=== PATIENT | male | born 1965 | race Caucasian/White ===

== ENCOUNTER 2022-02-10 09:02 | Emergency (ER) | payer MEDICARE ==
[2022-02-10 09:13] VITALS: BP 148/65; PULSE 75; RESP 18; TEMP 98.6
[2022-02-10] MEDS ORDERED: PROPARACAINE 0.5% OPHTH DROPS 15 ML BTL RIGHT EYE STA (09:28)
[2022-02-10] MEDS ORDERED: FLUORESCEIN STRIPS 1 MG STRIP RIGHT EYE ONE (09:28)
--- NOTE | 2022-02-10 09:32 | ED ---
Eye Problem HPI - General Chief complaint: Eye Problems Stated complaint: R. Eye Problems Time Seen by Provider: 02/10/22 09:14 Source: patient, RN notes reviewed Mode of arrival: ambulatory Limitations: no limitations - History of Present Illness Initial comments: Patient is a 56 year old male presenting to the ER with a chief complaint of right eye pain. Patient reports amblyopia of his right eye since childhood. Patient states he was treated for a sinus infection about two weeks ago with steroids and antibiotics. The pain has been appearing ever since. He describes it as a brain freeze deep in his right eye. The pain would only present at nighttime but now has progressed to daytime as well. He denies worsening of pain with change of positions. Patient also endorses associated headaches and his sclera turning bright red which resolves. He has tried taking Advil and a warm rag to relieve the symptoms with only slight relief. Denies any visual changes. - Related Data Previous Rx's Medication Instructions Recorded carBAMazepine [Carbatrol] See Rx Instructions .ROUTE 02/10/22 .COMPLEX #90 cap Allergies Allergy/AdvReac Type Severity Reaction Status Date / Time No Known Allergies Allergy Verified 02/10/22 09:13 Review of Systems ROS Statement: Those systems with pertinent positive or pertinent negative responses have been documented in the HPI. ROS Other: All systems not noted in ROS Statement are negative. Past Medical History Past Medical History: No Reported History History of Any Multi-Drug Resistant Organisms: None Reported Past Surgical History: Appendectomy, Cholecystectomy, Hernia Repair Smoking Status: Vaper Past Alcohol Use History: Occasional Past Drug Use History: None Reported General Exam Limitations: no limitations General appearance: alert, in no apparent distress Head exam: Present: atraumatic, normocephalic, normal inspection Eye exam: Present: normal appearance, PERRL, EOMI Pupils: Present: normal accommodation ENT exam: Present: normal exam, mucous membranes moist Neck exam: Present: normal inspection. Absent: tenderness, meningismus, lymphadenopathy Respiratory exam: Present: normal lung sounds bilaterally. Absent: respiratory distress, wheezes, rales, rhonchi, stridor Cardiovascular Exam: Present: regular rate, normal rhythm, normal heart sounds. Absent: systolic murmur, diastolic murmur, rubs, gallop, clicks GI/Abdominal exam: Present: soft, normal bowel sounds. Absent: distended, tenderness, guarding, rebound, rigid Neurological exam: Present: alert, oriented X3, CN II-XII intact Psychiatric exam: Present: normal affect, normal mood Skin exam: Present: warm, dry, intact, normal color. Absent: rash Course Vital Signs 02/10/22 09:10 Temperature 98.6 F Pulse Rate 75 Respiratory 18 Rate Blood Pressure 148/65 O2 Sat by Pulse 97 Oximetry Medical Decision Making - Medical Decision Making 56-year-old male presents from for intermittent right facial right ocular pain. Patient for continued including labs CT, gallop or pressure to my exam with no acute findings. Patient is asymptomatic at this time. He had concerns is related to trigeminal neuralgia. Patient has no evidence of herpes zoster. Patient has no visual changes and felt likely not to be checked cell arteritis. Patient will follow-up neurology, PCP we discharged on Tegretol. - Lab Data Result diagrams: 02/10/22 09:37 02/10/22 09:37 Lab Results 02/10/22 02/10/22 Range/Units 09:37 09:37 WBC 8.0 (3.8-10.6) k/uL RBC 5.71 (4.30-5.90) m/uL Hgb 16.5 (13.0-17.5) gm/dL Hct 50.1 (39.0-53.0) % MCV 87.7 (80.0-100.0) fL MCH 28.8 (25.0-35.0) pg MCHC 32.9 (31.0-37.0) g/dL RDW 12.5 (11.5-15.5) % Plt Count 216 (150-450) k/uL MPV 7.3 Neutrophils % 58 % Lymphocytes % 32 % Monocytes % 5 % Eosinophils % 3 % Basophils % 0 % Neutrophils # 4.6 (1.3-7.7) k/uL Lymphocytes # 2.6 (1.0-4.8) k/uL Monocytes # 0.4 (0-1.0) k/uL Eosinophils # 0.3 (0-0.7) k/uL Basophils # 0.0 (0-0.2) k/uL Sodium 139 (137-145) mmol/L Potassium 4.1 (3.5-5.1) mmol/L Chloride 110 H (98-107) mmol/L Carbon Dioxide 21 L (22-30) mmol/L Anion Gap 8 mmol/L BUN 10 (9-20) mg/dL Creatinine 0.96 (0.66-1.25) mg/dL Est GFR (CKD-EPI)AfAm >90 (>60 ml/min/1.73 sqM) Est GFR (CKD-EPI)NonAf 87 (>60 ml/min/1.73 sqM) Glucose 106 H (74-99) mg/dL Calcium 8.9 (8.4-10.2) mg/dL Total Bilirubin 0.6 (0.2-1.3) mg/dL AST 23 (17-59) U/L ALT 28 (4-49) U/L Alkaline Phosphatase 94 (38-126) U/L Total Protein 7.4 (6.3-8.2) g/dL Albumin 4.4 (3.5-5.0) g/dL Disposition Clinical Impression: Trigeminal neuralgia of right side of face Disposition: HOME SELF-CARE Condition: Stable Instructions (If sedation given, give patient instructions): Trigeminal Neuralgia (ED) Additional Instructions: Please return to the Emergency Department if symptoms worsen or any other concerns. Prescriptions: carBAMazepine [Carbatrol] See Rx Instructions .ROUTE .COMPLEX #90 cap Is patient prescribed a controlled substance at d/c from ED?: No Referrals: Rosemarie Brewer MD [REFERRING] - 1-2 days Shayla Painting MD [STAFF PHYSICIAN] - 1-2 days Time of Disposition: 10:56
[2022-02-10 09:44] LABS: Basophils % (A) 0 %; Eosinophils # (A) 0.3 k/uL (0-0.7); Eosinophils % (A) 3 %; HCT 50.1 % (39.0-53.0); HGB 16.5 gm/dL (13.0-17.5); Lymphocytes # (A) 2.6 k/uL (1.0-4.8); Lymphocytes % (A) 32 %; MCH 28.8 pg (25.0-35.0); MCHC 32.9 g/dL (31.0-37.0); MCV 87.7 fL (80.0-100.0); Mean Platelet Volume 7.3; Monocytes # (A) 0.4 k/uL (0-1.0); Monocytes % (A) 5 %; Neutrophils # (A) 4.6 k/uL (1.3-7.7); Neutrophils % (A) 58 %; Platelet Count 216 k/uL (150-450); RBC 5.71 m/uL (4.30-5.90); RDW 12.5 % (11.5-15.5)
[2022-02-10 09:57] LABS: ALT 28 U/L (4-49); AST 23 U/L (17-59); African American GFR (CKD) >90 (>60 ml/min/1.73 sqM); Albumin 4.4 g/dL (3.5-5.0); Alkaline Phosphatase 94 U/L (38-126); Anion Gap 8 mmol/L; Blood Urea Nitrogen 10 mg/dL (9-20); Calcium 8.9 mg/dL (8.4-10.2); Carbon Dioxide 21 mmol/L (22-30); Chloride 110 mmol/L (98-107); Glucose 106 mg/dL (74-99); Non-African American GFR(CKD) 87 (>60 ml/min/1.73 sqM); Potassium 4.1 mmol/L (3.5-5.1); Sodium 139 mmol/L (137-145); Total Bilirubin 0.6 mg/dL (0.2-1.3); Total Protein 7.4 g/dL (6.3-8.2)
--- NOTE | 2022-02-10 10:30 | CT ---
INDICATION: Eye pain. COMPARISON: No prior studies available for comparison. TECHNIQUE: Multiple thin slice images were obtained through the orbits. Coronal and sagittal reforma ts were performed. Approximately 100 cc of Isovue 300 was given intravenously. One or more CT dose re duction strategies were utilized during this examination. Total DLP for the study 370 mGycm. FINDINGS: The globes have a normal contour. Orbital shi appear intact. The orbital fat does appear unremark able. Extraocular muscles are within normal limits. No abnormal contrast enhancement. Mild mucosal t hickening of the left maxillary and ethmoid sinuses. Visualized vasculature is patent. IMPRESSION No evidence of orbital irregularity or mass.
== END 2022-02-10 11:13 | disposition home or self-care (01) ==
LOC: EC 09:02
DX: G50.0 Trigeminal neuralgia (principal); F17.290 Nicotine dependence, other tobacco product, uncomplicated; Z90.49 Acquired absence of other specified parts of digestive tract
CPT/HCPCS: 36415; 70481; 80053; 85025; 99284